=== PATIENT | female | born 2000 | race Caucasian/White ===

== ENCOUNTER 2020-02-22 15:45 | Emergency (ER) | payer MEDICAID ==
[~2020-02-22] VITALS: Ht 160 cm; Wt 80.3 kg
[2020-02-22 16:09] VITALS: BP 132/70
--- NOTE | 2020-02-22 16:13 | NUR ---
PT AMBULATED TO BED 7 STEADY GAIT.
--- NOTE | 2020-02-22 16:31 | NUR ---
DR. AYALA AT BEDSIDE.
--- NOTE | 2020-02-22 16:34 | NUR ---
19 Y/F PT C/O BLOODY STOOL & RECTAL PAIN X 1 MONTH ( ON AND OFF), LLQ ABDOMINAL PAIN & DIZZINESS FOR TODAY, PT REPORTS PAIN IS WORSE AFTER MEALS. ABD SOFT, BS ACTIVE. DENIES HX OF HEMORRHOIDS. PT REPORTS BLOOD IS BRIGHT RED, RECTAL PAIN (CRAMP) 5/10. PT DENIES N/V/D, OR DYSURIA. PT DENIES FEVER. PMH: DENIES
[2020-02-22 16:58] LABS: BASOPHILS % (AUTO) 0.6 % (0.0-2.0); EOSINOPHILS # (AUTO) 0.2 K/uL (0-0.4); EOSINOPHILS % (AUTO) 2.6 % (0.0-4.0); HEMATOCRIT 41.7 % (36-48); HEMOGLOBIN 14.4 g/dL (12.0-16.0); LYMPHOCYTES # (AUTO) 2.6 K/uL (2.5-16.5); LYMPHOCYTES % (AUTO) 33.2 % (20.5-51.1); MEAN CORPUSCULAR HEMOGLOBIN 30 pg (27-31); MEAN CORPUSCULAR HGB CONC 35 g/dL (33-37); MONOCYTES # (AUTO) 0.6 K/uL (0.8-1.0); MONOCYTES % (AUTO) 7.9 % (1.7-9.3); NEUTROPHILS # (AUTO) 4.4 K/uL (1.8-7.7); NEUTROPHILS % (AUTO) 55.7 % (42.2-75.2); PLATELET COUNT (AUTO) 259 K/uL (140-450); RED BLOOD CELL COUNT(AUTO) 4.74 MIL/uL (4.20-5.40); RED CELL DISTRIBUTION WIDTH 12.7 % (11.6-13.7); WHITE BLOOD COUNT (AUTO) 7.9 K/uL (4.8-10.8)
[2020-02-22 17:07] LABS: APPEARANCE,URINE SL CLOUDY (CLEAR); BILIRUBIN,URINE NEGATIVE (NEGATIVE); BLOOD, URINE NEGATIVE (NEGATIVE); COLOR,URINE YELLOW (YELLOW); LEUKOCYTE ESTERASE ,URINE NEGATIVE (NEGATIVE); NITRITE, URINE NEGATIVE (NEGATIVE); UGLUCOSE NEGATIVE (NEGATIVE)
[2020-02-22 17:19] LABS: ALBUMIN 3.9 g/dL (3.4-5.0); ANION GAP 13.1 (8-16); CARBON DIOXIDE 25.9 mmol/L (21-32); CREATININE 0.7 mg/dL (0.6-1.3); TOTAL BILIRUBIN 0.5 mg/dL (0.0-1.0)
[2020-02-22] MEDS ORDERED: HYDROcodone/APAP 5/325 MG 1 TAB TAB PO ONE (17:55)
--- NOTE | 2020-02-22 18:23 | NUR ---
Dr. Taylor is reevaluating the patient at bedside.
--- NOTE | 2020-02-22 18:24 | NUR ---
DR. AYALA AT BEDSIDE REEVALUATING PT.
[2020-02-22 18:50] VITALS: BP 123/89
--- NOTE | 2020-02-22 18:50 | NUR ---
Patient discharged with v/s stable. Written and verbal after care instructions given and explained. Patient alert, oriented and verbalized understanding of instructions. Ambulatory with steady gait. All questions addressed prior to discharge. ID band removed. Patient advised to follow up with PMD. Rx of MIRALAX AND NORCO given. Patient educated on indication of medication including possible reaction and side effects. Opportunity to ask questions provided and answered.
== END 2020-02-22 18:50 | disposition home or self-care (01) ==
LOC: MED 15:45 → EDBD 15:45 → MED 18:50
DX: K62.5 Hemorrhage of anus and rectum (principal); N83.209 Unspecified ovarian cyst, unspecified side
CPT/HCPCS: 36415; 76856; 80053; 81003; 81025; 83690; 85025; 99285

== ENCOUNTER 2021-04-25 02:35 | Emergency (ER) | payer SELFPAY ==
[~2021-04-25] VITALS: Ht 157.5 cm; Wt 74.8 kg
[2021-04-25 02:43] VITALS: BP 147/96
--- NOTE | 2021-04-25 02:49 | NUR ---
patient to the bathroom for urine collection
[2021-04-25] MEDS ORDERED: ONDANSETRON 4 MG/2 ML VIAL IVP ONE (02:50)
[2021-04-25] MEDS ORDERED: ACETAMINOPHEN EXTRA STRENGTH 500 MG TAB PO ONE (02:50)
[2021-04-25] MEDS ORDERED: PROCHLORPERAZINE 10 MG/2 ML VIAL IVP ONE (02:50)
[2021-04-25] MEDS ORDERED: NACL 0.9% 1,000 ML IV ONE (02:50)
--- NOTE | 2021-04-25 02:50 | NUR ---
patient to bed 4 ambulatory
[2021-04-25 03:16] LABS: BASOPHILS # (AUTO) 0.2 K/uL (0.00-0.22); BASOPHILS % (AUTO) 1.6 % (0.0-2.0); EOSINOPHILS # (AUTO) 0.7 K/uL (0-0.4); EOSINOPHILS % (AUTO) 5.5 % (0.0-4.0); HEMATOCRIT 43.4 % (36-48); LYMPHOCYTES # (AUTO) 1.1 K/uL (2.5-16.5); LYMPHOCYTES % (AUTO) 9.3 % (20.5-51.1); MEAN CORPUSCULAR HEMOGLOBIN 30 pg (27-31); MEAN CORPUSCULAR HGB CONC 35 g/dL (33-37); MEAN CORPUSCULAR VOLUME 87.9 fL (80-94); MONOCYTES # (AUTO) 0.4 K/uL (0.8-1.0); MONOCYTES % (AUTO) 3.3 % (1.7-9.3); NEUTROPHILS # (AUTO) 9.8 K/uL (1.8-7.7); NEUTROPHILS % (AUTO) 80.3 % (42.2-75.2); PLATELET COUNT (AUTO) 283 K/uL (140-450); RED BLOOD CELL COUNT(AUTO) 4.94 MIL/uL (4.20-5.40); RED CELL DISTRIBUTION WIDTH 12.9 % (11.6-13.7); WHITE BLOOD COUNT (AUTO) 12.2 K/uL (4.8-10.8)
--- NOTE | 2021-04-25 03:17 | NUR ---
20 Y/O FEMALE BIB SELF, C/O N/V/D X8 HRS. PATIENT PRESENTS TO ED WITH ANXIETY AND N/V./D PT STATES SHE FELT NAUSEA SHORTLY AFTER DINER AND VOMITED ONCE. PT THEN WENT TO SLEEP AND WAS AWOKEN WITH NAUSEA AT 0245 THIS MORNING. SKIN IS PINK/WARM/DRY; AAOX4 WITH EVEN AND STEADY GAIT; LUNGS CLEAR BL; HR EVEN AND REGULAR; PT DENIES ANY FEVER, CP, SOB, OR COUGH AT THIS TIME; PATIENT STATES PAIN OF 7/10 AT THIS TIME; VSS; PATIENT POSITIONED FOR COMFORT; HOB ELEVATED; BEDRAILS UP X2; BED DOWN. ER MD MADE AWARE OF PT STATUS. HX: OVARIAN CYST REMOVAL NKA DENIES MEDS
[2021-04-25 03:34] LABS: ALBUMIN 4.3 g/dL (3.4-5.0); ANION GAP 17.2 (8-16); CARBON DIOXIDE 24.6 mmol/L (21-32); CREATININE 0.8 mg/dL (0.6-1.3); POTASSIUM 3.8 mmol/L (3.5-5.1)
[2021-04-25] MEDS ORDERED: ONDA-188 SL (03:44)
--- NOTE | 2021-04-25 03:45 | NUR ---
ER AT BEDSIDE
--- NOTE | 2021-04-25 03:53 | NUR ---
PRASANNA/JADYN COLLECTED AND WALKED TO LAB
--- NOTE | 2021-04-25 03:54 | NUR ---
LABS AT BEDSIDE
[2021-04-25 04:57] VITALS: BP 133/83
--- NOTE | 2021-04-25 04:57 | NUR ---
Patient discharged with v/s stable. Written and verbal after care instructions given and explained. Patient alert, oriented and verbalized understanding of instructions. Ambulatory with steady gait. All questions addressed prior to discharge. ID band removed. Patient advised to follow up with PMD. Rx of Ondansetron given. Patient educated on indication of medication including possible reaction and side effects. Opportunity to ask questions provided and answered. A/Ox4, VSS, ambulatory, unlabored breathing, and calm demeanor.
== END 2021-04-25 04:57 | disposition home or self-care (01) ==
LOC: MED 02:35
DX: R11.2 Nausea with vomiting, unspecified (principal); Z20.822 Contact with and (suspected) exposure to COVID-19; R19.7 Diarrhea, unspecified; Z79.899 Other long term (current) drug therapy
CPT/HCPCS: 36415; 80053; 81002; 81025; 84703; 85025; 87426; 96361; 96374; 96375; 99284; J0780; J2405; J7030

== ENCOUNTER 2021-12-24 09:21 | Emergency (ER) | payer OTHER ==
[~2021-12-24] VITALS: Ht 157.5 cm; Wt 79.4 kg
[~2021-12-24 09:21] MED LIST: ONDA-188 SL
[2021-12-24 09:26] VITALS: BP 166/101
[2021-12-24] MEDS ORDERED: NACL 0.9% 1,000 ML IV ONE (09:40)
[2021-12-24] MEDS ORDERED: MORPHINE SULFATE 4 MG/ML SYR IVP ONE (09:40)
[2021-12-24] MEDS ORDERED: ONDANSETRON 4 MG/2 ML VIAL IVP ONE (09:40)
--- NOTE | 2021-12-24 09:50 | NUR ---
21YO FEMALE PT C/O STABBING 12/30 RL ABDOMINAL PAIN XYESTERDAY. PT REPORTS SUDDEN ONSET W/ RADIATION TO RL BACK. REPORTS N/V , DENIES BLOOD. STATES GOING TO PCP TODAY WHICH RECOMMENDED HER TO COME TO ER DUE TO POSSIBLE APPENDICITIS. DENIES TAKING MEDICATION FOR PAIN , DIARRHEA, CHEST PAIN OR SOB. ABDOMEN NON DISTENDED AND TENDER TO TOUCH. PT AAOX4, IN VISIBLE DISTRESS AND HYPERVENTILATING. ON [employer]. HX: DENIES NKA
[2021-12-24] MEDS ORDERED: HALOPERIDOL IM 5 MG/ML VIAL IM ONE (10:10)
[2021-12-24 10:23] LABS: BASOPHILS # (AUTO) 0.1 K/uL (0.00-0.22); EOSINOPHILS # (AUTO) 0.3 K/uL (0-0.4); EOSINOPHILS % (AUTO) 3.6 % (0.0-4.0); HEMATOCRIT 43.7 % (36-48); HEMOGLOBIN 15.1 g/dL (12.0-16.0); LYMPHOCYTES # (AUTO) 3.6 K/uL (2.5-16.5); LYMPHOCYTES % (AUTO) 44.1 % (20.5-51.1); MEAN CORPUSCULAR HEMOGLOBIN 30 pg (27-31); MEAN CORPUSCULAR HGB CONC 35 g/dL (33-37); MEAN CORPUSCULAR VOLUME 87.5 fL (80-94); MONOCYTES # (AUTO) 0.6 K/uL (0.8-1.0); MONOCYTES % (AUTO) 6.9 % (1.7-9.3); NEUTROPHILS # (AUTO) 3.6 K/uL (1.8-7.7); NEUTROPHILS % (AUTO) 44.4 % (42.2-75.2); PLATELET COUNT (AUTO) 265 K/uL (140-450); RED CELL DISTRIBUTION WIDTH 12.8 % (11.6-13.7); WHITE BLOOD COUNT (AUTO) 8.1 K/uL (4.8-10.8)
--- NOTE | 2021-12-24 10:25 | NUR ---
PT AMB TO [facility] W/O ASST
[2021-12-24 10:33] LABS: ANION GAP 16.2 (8-16); CARBON DIOXIDE 24.5 mmol/L (21-32); CREATININE 0.8 mg/dL (0.6-1.3); POTASSIUM 3.7 mmol/L (3.5-5.1); TOTAL BILIRUBIN 0.7 mg/dL (0.0-1.0)
--- NOTE | 2021-12-24 10:53 | NUR ---
PT TAKEN TO CT VIA WHEELCHAIR
--- NOTE | 2021-12-24 11:03 | NUR ---
PT BROUGHT BACK FROM CT
[2021-12-24 11:07] LABS: APPEARANCE,URINE CLOUDY (CLEAR); BILIRUBIN,URINE 1+ (NEGATIVE); BLOOD, URINE 3+ (NEGATIVE); COLOR,URINE RED (YELLOW); LEUKOCYTE ESTERASE ,URINE TRACE (NEGATIVE); NITRITE, URINE POSITIVE (NEGATIVE); PH,URINE 5.5 (5.0-9.0); UGLUCOSE NEGATIVE (NEGATIVE)
--- NOTE | 2021-12-24 11:13 | NUR ---
ULTRASOUND AT BEDSIDE
[2021-12-24 11:19] LABS: RBC,URINE TOO NUMEROUS TO COUN /HPF (0-5)
[2021-12-24 11:20] LABS: WBC,URINE 0-5 /HPF (0-5)
[2021-12-24] MEDS ORDERED: ACET-5629 PO (12:28)
[2021-12-24] MEDS ORDERED: TAMS0.4C96 PO (12:28)
[2021-12-24] MEDS ORDERED: IBUP-2213 PO (12:28)
[2021-12-24] MEDS ORDERED: ONDA-188 PO (12:28)
[2021-12-24 13:06] VITALS: BP 115/70
--- NOTE | 2021-12-24 13:06 | NUR ---
Patient discharged with v/s stable. Written and verbal after care instructions given and explained. Patient alert, oriented and verbalized understanding of instructions. Ambulatory with steady gait. All questions addressed prior to discharge. ID band removed. Patient advised to follow up with PMD. Rx of PERCOCET, ZOFRAN, FLOMAX given. Patient educated on indication of medication including possible reaction and side effects. Opportunity to ask questions provided and answered.
== END 2021-12-24 13:06 | disposition home or self-care (01) ==
LOC: MED 09:21
DX: N20.0 Calculus of kidney (principal); R11.2 Nausea with vomiting, unspecified; F12.90 Cannabis use, unspecified, uncomplicated; Z79.899 Other long term (current) drug therapy
CPT/HCPCS: 36415; 74176; 76856; 80053; 81001; 81025; 85025; 87086; 93976; 96361; 96372; 96374; 96375; 99285; J1630; J2270; J2405; J7030; Q0092

== ENCOUNTER 2022-01-11 19:53 | Emergency (ER) | payer OTHER ==
[~2022-01-11] VITALS: Ht 157.5 cm; Wt 79.4 kg
[~2022-01-11 19:53] MED LIST changes: +ACET-5629 PO; +IBUP-2213 PO; +ONDA-188 PO; +TAMS0.4C96 PO
[2022-01-11 20:15] VITALS: BP 129/90
--- NOTE | 2022-01-11 20:18 | NUR ---
TO LOBBY A/W BED AMBULATORY
--- NOTE | 2022-01-11 21:10 | NUR ---
PT TAKEN TO BED 6
--- NOTE | 2022-01-11 21:15 | NUR ---
21 yo f bib self with c/c of 10 RLQ pain rad to back x2wks. pt states she was here 2wks ago and was diagnosed with kidney stones. +n/v/d. states she has been taking flomax and oxycodone as prescribed but is not working. denies hx, rx and allergies
--- NOTE | 2022-01-11 21:17 | NUR ---
DR ZAVALA EXAMINING PT
[2022-01-11] MEDS ORDERED: NACL 0.9% 1,000 ML IV ONE (21:20)
[2022-01-11] MEDS ORDERED: MORPHINE SULFATE 4 MG/ML SYR IVP ONE (21:20)
[2022-01-11] MEDS ORDERED: ONDANSETRON 4 MG/2 ML VIAL IVP ONE (21:20)
[2022-01-11] MEDS ORDERED: KETOROLAC 30 MG/ML VIAL IVP ONE (22:20)
[2022-01-11] MEDS ORDERED: KETOROLAC 30 MG/ML VIAL ONE (22:21)
[2022-01-11] MEDS ORDERED: IBUP-2213 PO (23:30)
[2022-01-11] MEDS ORDERED: ACET-8386 PO (23:30)
[2022-01-11] MEDS ORDERED: TAMS0.4C96 PO (23:30)
[2022-01-11] MEDS ORDERED: ONDA8TAB87 PO (23:30)
[2022-01-11 23:57] VITALS: BP 117/68
--- NOTE | 2022-01-11 23:57 | NUR ---
Patient discharged with v/s stable. Written and verbal after care instructions given and explained. Patient alert, oriented and verbalized understanding of instructions. Ambulatory with steady gait. All questions addressed prior to discharge. ID band removed. Patient advised to follow up with PMD. Rx of norco, ibuprofen, zofran, and flomax given. Patient educated on indication of medication including possible reaction and side effects. Opportunity to ask questions provided and answered.
== END 2022-01-11 22:57 | disposition home or self-care (01) ==
LOC: MED 19:53
DX: R10.31 Right lower quadrant pain (principal); R11.2 Nausea with vomiting, unspecified; R30.0 Dysuria; R19.7 Diarrhea, unspecified; F12.90 Cannabis use, unspecified, uncomplicated; F17.200 Nicotine dependence, unspecified, uncomplicated; Z98.890 Other specified postprocedural states; Z79.899 Other long term (current) drug therapy; Z79.1 Long term (current) use of non-steroidal anti-inflammatories (NSAID); Z79.891 Long term (current) use of opiate analgesic
CPT/HCPCS: 81002; 81025; 96361; 96374; 96375; 99284; J1885; J2270; J2405; J7030